=== PATIENT | female | born 1940 ===

== ENCOUNTER → 2017-04-30 | Outpatient (REF) | payer MEDICARE ==
[2017-04-30 13:03] LABS: BASO # 0.1 K/mm3 (0.0-0.2); BASO % 1.1 % (0.0-1.0); EOS # 0.3 K/mm3 (0.0-0.50); EOS % 3.8 % (0.0-3.0); LYMPH # 1.6 K/mm3 (1.5-4.5); MEAN CORPUSCULAR HEMOGLOBIN 29.9 pg (27.0-33.0); MEAN CORPUSCULAR HGB CONC 31.6 g/dl (32.0-36.5); MEAN CORPUSCULAR VOLUME 94.6 fl (80.0-96.0); MONO # 0.5 K/mm3 (0.0-0.8); MONO % 6.3 % (0.0-5.0); NEUTROPHILS # 5.5 K/mm3 (1.8-7.7); NEUTROPHILS % 68.5 % (36.0-66.0); RED CELL DISTRIBUTION WIDTH 13.8 % (11.5-14.5)
== END ==
LOC: M LABDRWAD 12:17
PROVIDERS: ATTEND Family Medicine
DX: D64.9 Anemia, unspecified (principal); E78.00 Pure hypercholesterolemia, unspecified